=== PATIENT | female | born 1995 | race Hispanic/Latino ===

== ENCOUNTER 2022-10-09 05:59 | Inpatient (IN) | payer BC, OTHER ==
[~2022-10-09] VITALS: Ht 162.6 cm; Wt 99.8 kg
--- NOTE | 2022-10-09 12:30 | PR ---
[facility] [address] [place], [place] [address] Signed Progress Notes IP Datetime Report Generated by CPN: 10/09/2022 12:30 PROGRESS NOTES: [id number] Impression: Reassuring Heart Rate Procedures: Sterile Vag Exam Plan: Induction VITAL SIGNS: [id number] Vital Signs: Reviewed; Within Normal Limits EXAM: [id number] Dilatation: 3.0 Effacement: 70 Station: -3 Contractions: q3-5 min MEMBRANES: [id number] Membranes Status: Intact Comments: Discussed with pt: s/p 2 doses Joe; rare contractions. Start low-dose pitocin, AROM once in regular contraction pattern and head well-applied. FETUS A: [id number] FHR Baseline: 140 Variability: Moderate 6-25bpm Accelerations: 15X15 Decelerations: None FHR Category: Category I Presentation: Vertex Comments on Fetus A: No evidence of acidemia FETUS B: [id number] Signing Physician: Nika Rodriguez DO Copies: ~ *Electronically Signed* 10/09/22 1230 NIKA RODRIGUEZ DO PATIENT NAME: MARGUERITE HENDRIX PROGRESS NOTE DATE OF : [birth year] PHYSICIAN: NIKA RODRIGUEZ DO RPT #: [id number] REPORT IS CONFIDENTIAL AND NOT TO BE RELEASED WITHOUT AUTHORIZATION
--- NOTE | 2022-10-09 16:48 | PR ---
[facility] [address] [facility] [place], [place] [address] Signed Progress Notes IP Datetime Report Generated by CPN: 10/09/2022 16:48 PROGRESS NOTES: [id number] Impression: Normal Progression of Labor; Reassuring Heart Rate Procedures: Artificial ROM Plan: Continue Present Management VITAL SIGNS: [id number] Vital Signs: Reviewed; Within Normal Limits EXAM: [id number] Dilatation: 4.0 Effacement: 70 Station: -2 Contractions: q3-5 min MEMBRANES: [id number] Membranes Status: Ruptured Comments: AROM performed without difficulty yielding moderate amount clear fluid Anticipate recheck in 2h, sooner if pt feeling urge to push or otherwise indicated FETUS A: [id number] FHR Baseline: 140 Variability: Moderate 6-25bpm Accelerations: 15X15 Decelerations: None FHR Category: Category I Presentation: Vertex Comments on Fetus A: No evidence of acidemia FETUS B: [id number] Signing Physician: Nika Rodriguez DO Copies: ~ *Electronically Signed* 10/09/22 1648 NIKA RODRIGUEZ DO PATIENT NAME: MARGUERITE HENDRIX PROGRESS NOTE DATE OF : 97 PHYSICIAN: NIKA RODRIGUEZ DO RPT #: [id number] REPORT IS CONFIDENTIAL AND NOT TO BE RELEASED WITHOUT AUTHORIZATION
--- NOTE | 2022-10-10 07:42 | PR ---
[facility] [address] [facility] [place], [place] [address] Signed PP Progress Notes Datetime Report Generated by CPN: 10/10/2022 07:42 SUBJECTIVE: [id number] Nausea/Vomiting: Denies Flatus: Yes Vital Signs: [id number] Vital Signs: Reviewed; Within Normal Limits EXAM: Ongoing Cardiovascular: Normal Respiratory: Normal Abdomen/Uterus: Normal Lochia: Normal Extremities: Normal Progress: Normal Exam Comments: NAD, resting in bed RRR No dyspnea/ retractions Abd SNTND, FF @ umbilicus : downey catheter still in place, adequate UOP Ext: trace edema IMPRESSION/PLAN/PROCEDURES: [id number] Impression: Normal Progression Other Plans: Remove downey Progress Notes: Pt is a PPD#1 s/p complicated by PPH -hgb 11.1 from 12.2 on admission -s/p TXA 1g, methergine 0.2mg, additional 30 units pitocin, placement of downey catheter -downey catheter in place Signing Physician: Nika Rodriguez DO Copies: ~ *Electronically Signed* 10/10/22 0742 NIKA RODRIGUEZ DO PATIENT NAME: MARGUERITE HENDRIX PROGRESS NOTE DATE OF : 97 PHYSICIAN: NIKA RODRIGUEZ DO RPT #: [id number] REPORT IS CONFIDENTIAL AND NOT TO BE RELEASED WITHOUT AUTHORIZATION
--- NOTE | 2022-10-11 12:34 | PR ---
[facility] [address] [place], [place] [address] Signed PP Progress Notes Datetime Report Generated by CPN: 10/11/2022 12:33 SUBJECTIVE: [id number] Nausea/Vomiting: Denies Flatus: Yes Bowel Movement: Yes Vital Signs: [id number] Vital Signs: Reviewed; Within Normal Limits EXAM: Ongoing Cardiovascular: Normal Respiratory: Normal Abdomen/Uterus: Normal Lochia: Normal Extremities: Normal Progress: Normal Exam Comments: NAD, sitting in bed eating lunch RRR No dyspnea/ retractions Abd SNTND, FFBU Ext: trace edema, neg Sonya's BL IMPRESSION/PLAN/PROCEDURES: [id number] Impression: Normal Progression Plan: Discharge Other Plans: Remove downey Procedures: Rhogam Progress Notes: Pt is a 27 yo PPD#2 s/p over intact perineum -progressing well : ambulating, voiding, tolerating regular diet. well, requesting DC to home. -PPH: hgb stable -GDM (diet): plan 6wk 2hr GTT -Rh negative: baby Rh positive, s/p rhogam Undecided re: contraception DC to home, follow-up as outpatient by phone in 2 weeks and in person in 6 weeks Signing Physician: Nika Rodriguez DO *Electronically Signed* 10/11/22 8214 NIKA RODRIGUEZ DO PATIENT NAME: MARGUERITE HENDRIX PROGRESS NOTE DATE OF : 97 PHYSICIAN: NIKA RODRIGUEZ DO RPT #: [id number] REPORT IS CONFIDENTIAL AND NOT TO BE RELEASED WITHOUT AUTHORIZATION
== END 2022-10-11 12:55 | disposition home or self-care (01) | DRG 806 ==
LOC: FBC 05:59
PROVIDERS: ADMIT Obstetrics & Gynecology; ATTEND Obstetrics & Gynecology
PROC: 10E0XZZ Delivery of Products of Conception, External Approach (ICD-10-PCS; principal; 2022-10-09)
PROC: 10907ZC Drainage of Amniotic Fluid, Therapeutic from Products of Conception, Via Natural or Artificial Opening (ICD-10-PCS; 2022-10-09)
PROC: 3E033VJ Introduction of Other Hormone into Peripheral Vein, Percutaneous Approach (ICD-10-PCS; 2022-10-09)
PROC: 3E0334Z Introduction of Serum, Toxoid and Vaccine into Peripheral Vein, Percutaneous Approach (ICD-10-PCS; 2022-10-09)
DX: O24.410 Gestational diabetes mellitus in pregnancy, diet controlled (principal); O72.1 Other immediate postpartum hemorrhage; Z37.0 Single live birth; O99.824 Streptococcus B carrier state complicating childbirth; Z3A.39 39 weeks gestation of pregnancy; O26.893 Other specified pregnancy related conditions, third trimester; Z67.41 Type O blood, Rh negative
CPT/HCPCS: 36415; 83030; 85027; 86850; 86900; 86901; A9270; J2540; J2590; J2790